=== PATIENT | female | born 1975 | race Caucasian/White ===

== ENCOUNTER → 2016-11-12 | Outpatient (CLI) | payer OTHER ==
--- NOTE | 2016-11-12 10:48 | MA ---
Screening Digital Mammogram With Tomosynthesis Clinical Indications: Routine screening. Technique: Standard digital cephalocaudal and tomosynthesis mediolateral oblique projections were ob tained. The digital images were processed by the [employer] computer aided detection system. Comparison: None. Breast density: D; The breast tissue is extremely dense. This may lower the sensitivity of mammograph y. Findings: CAD was reviewed. There is a 2.3 x 1.6 cm ovoid mass in the upper slightly outer right alyssa ast at approximately the 11:30 radial, 5-6 cm from the nipple. There is a 1.8 x 1.3 cm ovoid mass in the upper outer left breast, 4 cm from the nipple. Impression: Bilateral breast masses. Recommendation: Ultrasound to differentiate cyst from solid. BI-RADS 0: Needs additional imaging evaluation, bilateral. [facility] will send a result letter to the patient. Negative mammography should not preclude additional workup of a clinically suspicious finding. The patient's information is entered into a reminder system with a target due date for her next mammo gram.
== END ==
LOC: FIMAGING 09:44
DX: Z12.31 Encounter for screening mammogram for malignant neoplasm of breast (principal); N63 Unspecified lump in breast
CPT/HCPCS: G0202

== ENCOUNTER → 2016-11-26 | Outpatient (CLI) | payer OTHER ==
--- NOTE | 2016-11-26 13:27 | US ---
Breast Ultrasound Complete History: Masses in each breast seen on screening mammography Technique: The four quadrants and retroareolar region were scanned. The axilla was also scanned. Upp er I performed physical examination of the upper right and outer left breast. . Comparison: Screening mammography November 12, 2016 Findings: Physical examination of the upper right breast demonstrates a firm radially oriented thicke travis at the 12:00 radial 5 cm from the nipple. Corresponding to this is an irregularly marginated eliseo ronodular mass with deranged internal architecture. This area measures approximately 3.1 x 1.2 cm. Th ere is internal vascularity. Differential diagnosis includes fibroadenomatosis, phyllodes tumor and p seudoangiomatous stromal hyperplasia. Physical examination of the outer left breast is unremarkable. There is a nonpalpable small oval cristela d nodule measuring 1 x 0.5 x 0.8 cm. There is no associated differential diagnosis is predominantly f ibroadenoma. There is no internal vascularity. There is slight internal heterogeneity. Impression:1. Irregular mass upper right breast. Recommend ultrasound directed vacuum assisted core b iopsy for histologic analysis. Please see discussion above. 2. 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 This can be followed on serial ultrasound every 6 months for 2 years or if the patient or her physician desires, we could perform core biopsy at the ti me of the contralateral breast biopsy, to confirm the negative density. BI-RADS: 4, suspicious abnormality right breast Results and recommendations discussed with the patient in detail. At this time she prefers bilateral breast biopsy. She was given information about scheduling the vacuum assisted core biopsy. A message was left for Dr. Mccauley at 1:24 pm. Please fax an order for bilateral vacuum assisted core biopsy of the breast to [phone]. Results communicated to the patient at the time of the exam. Results discussed with the patient at the end of the exam. The patient understands the findings and is in agreement with the recommendation.
== END ==
LOC: FIMAGING 12:00
PROVIDERS: ATTEND Family Medicine
DX: N63 Unspecified lump in breast (principal)

== ENCOUNTER → 2016-12-08 | Outpatient (CLI) | payer OTHER ==
[~2016-12-08] MED LIST: THROMBIN (RECOMBINANT) 5,000 UNIT VIAL TP ONE
--- NOTE | 2016-12-08 10:40 | US ---
1. Vacuum-Assisted Ultrasound-Guided Core Biopsy Right Breast History: Unusual "mass" 12:00 Technique: Following informed consent, the mass within the 12:00 position of the right breast was l ocalized. The skin lateral to the unusual area was marked and then prepped and draped in sterile fash ion. Following local anesthesia with 1% lidocaine, lidocaine mixed with epinephrine was injected deep er within the breast tissue. A small skin quentin was placed on the skin surface, through which the 9-g auge Suros vacuum-assisted core biopsy needle was advanced with ultrasound guidance into the central mass. Numerous core biopsy samples were obtained through the mass. A Suros titanium clip was then luis leland in the central mass. Marcaine was then injected at the biopsy site for prolonged analgesia. Hemos tasis was obtained, a sterile pressure dressing was applied . A break was given to allow for hemostas is, since the patient mistakenly took ibuprofen. The opposite breast was then biopsied. At the end of both procedures, the patient was sent for a post procedural mammogram to document clip placement and to observe for post procedural hematoma formation. She was then discharged without complication, wit h instructions to call us with any thoughts, complications or concerns. Impression: 1. Successful ultrasound-guided core biopsy of mass right breast 12:00 position. 2. Successful deployment of Suros titanium clip positioned immediately adjacent to the biopsy site. 2. Vacuum-Assisted Ultrasound-Guided Core Biopsy Left Breast History:nodule 3:00 Technique: Following informed consent, the nodule within the 3:00 position of the left breast was lo calized. The skin was marked and then prepped and draped in sterile fashion. Following local anesthes ia with 1% lidocaine, lidocaine mixed with epinephrine was injected deeper within the breast tissue. A small skin quentin was placed on the skin surface, through which the 9-gauge Suros vacuum-assisted co re biopsy needle was advanced with ultrasound guidance to the deep margin of the mass. Numerous core biopsy samples were obtained through the mass, which was subtotally removed. A Suros titanium clip wa s then placed in the biopsy bed. Thrombin was then injected at the biopsy site for hemostasis. Hemost asis was obtained, a sterile pressure dressing was applied and the patient sent for a postprocedural bilateral mammogram to document clip placements and to observe for postprocedural hematoma formation. She was then discharged without complication, with instructions to call us with any thoughts, compli cations or concerns. Impression: 1. Successful ultrasound-guided core biopsy of mass left breast 3:00 position. 2. Successful deployment of Suros titanium clip positioned immediately adjacent to the biopsy site.
--- NOTE | 2016-12-08 11:24 | MA ---
Diagnostic Digital Bilateral Mammogram History: Post bilateral ultrasound-guided breast biopsy. Patient had bruising bilaterally possibly du e to ibuprofen use shortly before the procedure. Comparison: November 12, 2016. Technique: 2 views of each breast. Density: D Findings: A large round density in the right breast biopsy 12 o'clock site is consistent with a postp rocedural hematoma measuring approximately 3.5 x 2.5 x 3cm. Is no left breast hematoma. Biopsy clips are present in the central aspect of each biopsy bed. Impression: 1. Right breast postprocedural hematoma. BI-RADS 2. Benign. 2. No left breast hematoma. Results discussed with the patient. I have offered for her to return tomorrow for a recheck by the [facility] nursing staff and myself, if she desires.
== END ==
LOC: FIMAGING 08:25
PROVIDERS: ATTEND Family Medicine
PROC: 0HBV3ZX Excision of Bilateral Breast, Percutaneous Approach, Diagnostic (ICD-10-PCS; principal; 2016-12-08)
DX: D24.1 Benign neoplasm of right breast (principal); D24.2 Benign neoplasm of left breast
CPT/HCPCS: G0204

== ENCOUNTER → 2018-07-19 | Outpatient (CLI) | payer OTHER | LOC: FIMAGING 09:10 | PROVIDERS: ATTEND Family Medicine | DX: Z12.31 Encounter for screening mammogram for malignant neoplasm of breast (principal); Z86.018 Personal history of other benign neoplasm; Z80.3 Family history of malignant neoplasm of breast ==